=== PATIENT | male | born 1950 | race Caucasian/White ===

== ENCOUNTER 2018-12-31 12:52 | Emergency (ER) | payer OTHER ==
--- OUTSIDE RECORDS SUMMARY | 2018-12-31 12:56 | XMS REPORT ---
:1950 Author Organization eClinicalWorks Care Team Providers Name Role Phone Khushi Castellanoh Provider Role Unavailable Allergies, Adverse Reactions, Alerts Substance Reaction Event Type N.K.D.A. Info Not Available Non Drug Allergy Problems Problem Type Condition Code Onset Dates Condition Status Assessment Stented coronary artery Z95.5 Active Assessment Mixed hyperlipidemia E78.2 Active Assessment HTN (hypertension), benign I10 Active Assessment Environmental and seasonal allergies J30.89 Active Problem Stented coronary artery Z95.5 Active Problem Mixed hyperlipidemia E78.2 Active Problem HTN (hypertension), benign I10 Active Assessment Coronary artery disease involving I25.10 Active [place] coronary artery of [place] heart without angina pectoris Problem Environmental and seasonal allergies J30.89 Active Problem Coronary artery disease involving I25.10 Active [place] coronary artery of [place] heart without angina pectoris Medications Medication Code Code Instructions Start End Status Dosage System Date Date Aspirin [facility] 16470328326 81 MG Orally Active 1 tablet Once a day Simvastatin [facility] 09390956283 40 MG Orally Active 1 tablet Once a day in the evening Clopidogrel [facility] 09276729321 75 MG Orally Active 1 tablet Bisulfate Once a day Simvastatin [facility] 20961856353 40 Active TAKE 1 TABLET BY MOUTH AT BEDTIME Multivitamin [facility] 67406750587 - Orally Active not Adult defined MSM [facility] 76837923491 500 MG Orally Active not defined Results No Known Results Summary Purpose eClinicalWorks Submission
--- OUTSIDE RECORDS SUMMARY | 2018-12-31 12:56 | XMS REPORT ---
:1950 Author Organization eClinicalWorks Care Team Providers Name Role Phone Nelson, Na Provider Role Unavailable Allergies No Known Allergies Problems Problem Type Condition Code Onset Dates Condition Status Assessment Allergic rhinitis J30.9 Active Problem HTN (hypertension), benign I10 Active Problem Stented coronary artery Z95.5 Active Problem Allergic rhinitis, unspecified J30.9 Active seasonality, unspecified trigger Problem Coronary artery disease involving I25.10 Active [place] coronary artery of [place] heart without angina pectoris Problem Mixed hyperlipidemia E78.2 Active Problem Environmental and seasonal allergies J30.89 Active Medications Medication Code Code Instructions Start End Status Dosage System Date Date Multivitamin [facility] 53361045462 - Orally Active not Adult defined Clopidogrel [facility] 26761416353 75 MG Orally Active 1 tablet Bisulfate Once a day Simvastatin [facility] 48429284658 40 Active TAKE 1 TABLET BY MOUTH EVERY NIGHT AT BEDTIME Simvastatin [facility] 56445781906 40 MG Orally Active 1 tablet Once a day in the evening Aspirin 81 [facility] 88792984290 81 MG Orally Active 1 tablet Once a day MSM [facility] 88444645950 500 MG Orally Active not defined Results No Known Results Summary Purpose eClinicalWorks Submission
--- OUTSIDE RECORDS SUMMARY | 2018-12-31 12:56 | XMS REPORT ---
:1950 Author Organization eClinicalWorks Care Team Providers Name Role Phone Gray Erik Provider Role Unavailable Allergies, Adverse Reactions, Alerts [...] Assessment Coronary artery disease involving I25.10 Active [place] coronary artery of [place] heart without angina pectoris Problem Environmental and seasonal allergies J30.89 Active Problem Coronary artery disease involving I25.10 Active [place] coronary artery of [place] heart without angina pectoris Medications Medication Code Code Instructions Start End Status Dosage System Date Date Simvastatin [facility] 22847343679 40 MG Orally Active 1 tablet Once a day in the evening Simvastatin [facility] 11420478294 40 Active TAKE 1 TABLET BY MOUTH AT BEDTIME Clopidogrel [facility] 91956383659 75 MG Orally Active 1 tablet Bisulfate Once a day Aspirin 81 [facility] 80262855718 81 MG Orally Active 1 tablet Once a day Multivitamin [facility] 72398577823 - Orally Active not Adult defined MSM [facility] 57923533928 500 MG Orally Active not defined Results No Known Results Summary Purpose eClinicalWorks Submission
--- OUTSIDE RECORDS SUMMARY | 2018-12-31 12:56 | XMS REPORT ---
:1950 Author Organization eClinicalWorks Care Team Providers Name Role Phone Khushi Castellanoh Provider Role Unavailable Allergies No Known Allergies Problems Problem Type Condition Code Onset Dates Condition Status Problem HTN (hypertension), benign I10 Active Problem Stented coronary artery Z95.5 Active Problem Allergic rhinitis, unspecified J30.9 Active seasonality, unspecified trigger Problem Coronary artery disease involving I25.10 Active [place] coronary artery of [place] heart without angina pectoris Problem Mixed hyperlipidemia E78.2 Active Problem Environmental and seasonal allergies J30.89 Active Medications No Known Medications Results No Known Results Summary Purpose eClinicalWorks Submission
--- OUTSIDE RECORDS SUMMARY | 2018-12-31 12:56 | XMS REPORT ---
:1950 Author Organization eClinicalWorks Care Team Providers Name Role Phone CastellanoKhushih Provider Role Unavailable Allergies, Adverse Reactions, Alerts Substance Reaction Event Type N.K.D.A. Info Not Available Non Drug Allergy Problems Problem Type Condition Code Onset Dates Condition Status Assessment Pain of left leg M79.605 Active Assessment Pain in right leg M79.604 Active Problem Stented coronary artery Z95.5 Active Problem Mixed hyperlipidemia E78.2 Active Problem HTN (hypertension), benign I10 Active Assessment Contusion of lower leg, S80.10XA Active unspecified laterality, initial encounter Problem Environmental and seasonal J30.89 Active allergies Problem Coronary artery disease involving I25.10 Active [place] coronary artery of [place] heart without angina pectoris Medications Medication Code Code Instructions Start End Status Dosage System Date Date MSM [facility] 64765208444 500 MG Orally Active not defined Aspirin 81 [facility] 67027086595 81 MG Orally Active 1 tablet Once a day Simvastatin [facility] 41556561106 40 Active TAKE 1 TABLET BY MOUTH EVERY NIGHT AT BEDTIME Multivitamin [facility] 74339418057 - Orally Active not Adult defined Simvastatin [facility] 29224695707 40 MG Orally Active 1 tablet Once a day in the evening Clopidogrel [facility] 08532370222 75 MG Orally Active 1 tablet Bisulfate Once a day Results No Known Results Summary Purpose eClinicalWorks Submission
--- OUTSIDE RECORDS SUMMARY | 2018-12-31 12:56 | XMS REPORT ---
:1950 Author Organization eClinicalWorks Care Team Providers Name Role Phone Gray Erik Provider Role Unavailable Allergies No Known Allergies Problems Problem Type Condition Code Onset Dates Condition Status Assessment Allergic rhinitis J30.9 Active Problem HTN (hypertension), benign I10 Active Problem Stented coronary artery Z95.5 Active Problem Allergic rhinitis, unspecified J30.9 Active seasonality, unspecified trigger Problem Coronary artery disease involving I25.10 Active [place] coronary artery of [place] heart without angina pectoris Problem Mixed hyperlipidemia E78.2 Active Problem Environmental and seasonal allergies J30.89 Active Medications Medication Code Code Instructions Start End Status Dosage System Date Date Multivitamin [facility] 21269328083 - Orally Active not Adult defined Simvastatin [facility] 96571277147 40 MG Orally Active 1 tablet Once a day in the evening Simvastatin [facility] 77637019696 40 Active TAKE 1 TABLET BY MOUTH EVERY NIGHT AT BEDTIME Aspirin 81 [facility] 98373258224 81 MG Orally Active 1 tablet Once a day MSM [facility] 52950744966 500 MG Orally Active not defined Clopidogrel [facility] 87699963905 75 MG Orally Active 1 tablet Bisulfate Once a day Results No Known Results Summary Purpose eClinicalWorks Submission
--- OUTSIDE RECORDS SUMMARY | 2018-12-31 12:56 | XMS REPORT ---
:1950 Author Organization eClinicalWorks Care Team Providers Name Role Phone Erik Castellaon Provider Role Unavailable Allergies, Adverse Reactions, Alerts Substance Reaction Event Type N.K.D.A. Info Not Available Non Drug Allergy Problems Problem Type Condition Code Onset Dates Condition Status Assessment Mixed hyperlipidemia E78.2 Active Assessment Encounter for preventative adult Z00.01 Active health care exam with abnormal findings Assessment Coronary artery disease involving I25.10 Active [place] coronary artery of [place] heart without angina pectoris Problem HTN (hypertension), benign I10 Active Problem Stented coronary artery Z95.5 Active Problem Allergic rhinitis, unspecified J30.9 Active seasonality, unspecified trigger Problem Coronary artery disease involving I25.10 Active [place] coronary artery of [place] heart without angina pectoris Problem Mixed hyperlipidemia E78.2 Active Problem Environmental and seasonal allergies J30.89 Active Assessment Screening for depression Z13.31 Active Assessment Adult BMI 25.0-25.9 kg/sq m Z68.25 Active Assessment Allergic rhinitis, unspecified J30.9 Active seasonality, unspecified trigger Assessment Encounter for screening for other Z13.89 Active disorder Assessment Stented coronary artery Z95.5 Active Assessment Acute non-recurrent maxillary J01.00 Active sinusitis Assessment HTN (hypertension), benign I10 Active Medications Medication Code Code Instructions Start End Date Status Dosage System Date MSM [facility] 77002493768 500 MG Orally Active not defined Simvastatin [facility] 33696656167 40 MG Orally Active 1 tablet Once a day in the evening Multivitamin [facility] 19640996870 - Orally Active not Adult defined Aspirin 81 [facility] 68585230187 81 MG Orally Active 1 tablet Once a day Augmentin [facility] 30364025353 875-125 MG August Active 1 tablet Orally every 12 2018 hrs Clopidogrel [facility] 73574594654 75 MG Orally Active 1 tablet Bisulfate Once a day Results Name Result Date Reference Range Unit Abnormality Flag FLU TEST ----A Neg [id number] ----B Neg [id number] STREP A RAPID ----Result neg [id number] Summary Purpose eClinicalWorks Submission
--- OUTSIDE RECORDS SUMMARY | 2018-12-31 12:56 | XMS REPORT ---
:1950 Author Organization eClinicalWorks Care Team Providers Name Role Phone Khushi Castellanoh Provider Role Unavailable Allergies No Known Allergies Problems Problem Type Condition Code Onset Dates Condition Status Problem HTN (hypertension), benign I10 Active Problem Stented coronary artery Z95.5 Active Problem Allergic rhinitis, unspecified J30.9 Active seasonality, unspecified trigger Problem Coronary artery disease involving I25.10 Active [place] coronary artery of [place] heart without angina pectoris Problem Mixed hyperlipidemia E78.2 Active Problem Environmental and seasonal allergies J30.89 Active Medications No Known Medications Results No Known Results Summary Purpose eClinicalWorks Submission
--- OUTSIDE RECORDS SUMMARY | 2018-12-31 12:56 | XMS REPORT ---
:1950 Author Organization eClinicalWorks Care Team Providers Name Role Phone Gray Erik Provider Role Unavailable Allergies, Adverse Reactions, Alerts Substance Reaction Event Type N.K.D.A. Info Not Available Non Drug Allergy Problems Problem Type Condition Code Onset Dates Condition Status Assessment Allergic rhinitis, unspecified J30.9 Active seasonality, unspecified trigger Problem HTN (hypertension), benign I10 Active Problem Stented coronary artery Z95.5 Active Problem Allergic rhinitis, unspecified J30.9 Active seasonality, unspecified trigger Problem Coronary artery disease involving I25.10 Active [place] coronary artery of [place] heart without angina pectoris Problem Mixed hyperlipidemia E78.2 Active Problem Environmental and seasonal allergies J30.89 Active Medications Medication Code Code Instructions Start End Status Dosage System Date Date Simvastatin [facility] 86917304636 40 MG Orally Active 1 tablet Once a day in the evening MSM [facility] 22695820207 500 MG Orally Active not defined Aspirin [address] [facility] 82634146076 81 MG Orally Active 1 tablet Once a day Multivitamin [facility] 71158668404 - Orally Active not Adult defined Simvastatin [facility] 10342677655 40 Active TAKE 1 TABLET BY MOUTH EVERY NIGHT AT BEDTIME Clopidogrel [facility] 67426757020 75 MG Orally Active 1 tablet Bisulfate Once a day Results No Known Results Summary Purpose eClinicalWorks Submission
--- OUTSIDE RECORDS SUMMARY | 2018-12-31 12:57 | XMS REPORT ---
:1950 Author Organization eClinicalWorks Care Team Providers Name Role Phone Gray Erik Provider Role Unavailable Allergies, Adverse Reactions, Alerts Substance Reaction Event Type N.K.D.A. Info Not Available Non Drug Allergy Problems Problem Type Condition Code Onset Dates Condition Status Assessment History of whiplash injury to neck Z87.828 Active Assessment Allergic rhinitis J30.9 Active Assessment Muscle spasm M62.838 Active Problem HTN (hypertension), benign I10 Active Problem Stented coronary artery Z95.5 Active Problem Allergic rhinitis, unspecified J30.9 Active seasonality, unspecified trigger Problem Coronary artery disease involving I25.10 Active [place] coronary artery of [place] heart without angina pectoris Problem Mixed hyperlipidemia E78.2 Active Problem Environmental and seasonal J30.89 Active allergies Medications Medication Code Code Instructions Start End Status Dosage System Date Date Simvastatin [facility] 34779859159 40 MG Orally Active 1 tablet Once a day in the evening Cyclobenzaprine [facility] 94688949923 5 MG Orally December 29December Active 1-2 HCl Once at bedtime 2018 14, tablet as 2019 needed at bedtime MSM [facility] 90101071785 500 MG Orally Active not defined Simvastatin [facility] 93474268536 40 Active TAKE 1 TABLET BY MOUTH EVERY NIGHT AT BEDTIME Aspirin 81 [facility] 29799651418 81 MG Orally Active 1 tablet Once a day Clopidogrel [facility] 35749820253 75 MG Orally Active 1 tablet Bisulfate Once a day Multivitamin Adult [facility] 91349798220 - Orally Active not defined Results No Known Results Summary Purpose eClinicalWorks Submission
--- OUTSIDE RECORDS SUMMARY | 2018-12-31 12:57 | XMS REPORT ---
:1950 Author Organization eClinicalWorks Care Team Providers Name Role Phone Erik Castellano Provider Role Unavailable Allergies No Known Allergies Problems Problem Type Condition Code Onset Dates Condition Status Assessment Allergic rhinitis J30.9 Active Problem HTN (hypertension), benign I10 Active Problem Stented coronary artery Z95.5 Active Problem Allergic rhinitis, unspecified J30.9 Active seasonality, unspecified trigger Problem Coronary artery disease involving I25.10 Active [place] coronary artery of [place] heart without angina pectoris Problem Mixed hyperlipidemia E78.2 Active Problem Environmental and seasonal allergies J30.89 Active Medications Medication Code Code Instructions Start End Status Dosage System Date Date Simvastatin [facility] 73035547229 40 MG Orally Active 1 tablet Once a day in the evening Aspirin 81 [facility] 32832084935 81 MG Orally Active 1 tablet Once a day Clopidogrel [place] 51611119556 75 MG Orally Active 1 tablet Bisulfate Once a day Multivitamin [facility] 38127450297 - Orally Active not Adult defined Simvastatin [facility] 61177993912 40 Active TAKE 1 TABLET BY MOUTH EVERY NIGHT AT BEDTIME MSM [facility] 25793393283 500 MG Orally Active not defined Results No Known Results Summary Purpose eClinicalWorks Submission
--- OUTSIDE RECORDS SUMMARY | 2018-12-31 12:57 | XMS REPORT ---
:1950 Author Organization eClinicalWorks Care Team Providers Name Role Phone Gray Erik Provider Role Unavailable Allergies, Adverse Reactions, Alerts Substance Reaction Event Type N.K.D.A. Info Not Available Non Drug Allergy Problems Problem Type Condition Code Onset Dates Condition Status Assessment Mixed hyperlipidemia E78.2 Active Assessment Coronary artery disease involving I25.10 Active [place] coronary artery of [place] heart without angina pectoris Assessment Allergic rhinitis J30.9 Active Assessment Environmental and seasonal allergies J30.89 Active Assessment Stented coronary artery Z95.5 Active Assessment HTN (hypertension), benign I10 Active Problem HTN (hypertension), benign I10 Active Problem Stented coronary artery Z95.5 Active Problem Allergic rhinitis, unspecified J30.9 Active seasonality, unspecified trigger Problem Coronary artery disease involving I25.10 Active [place] coronary artery of [place] heart without angina pectoris Problem Mixed hyperlipidemia E78.2 Active Problem Environmental and seasonal allergies J30.89 Active Medications Medication Code Code Instructions Start End Status Dosage System Date Date Multivitamin [facility] 22886130549 - Orally Active not Adult defined Simvastatin [facility] 11209744813 40 MG Orally Active 1 tablet Once a day in the evening MSM [facility] 70694227028 500 MG Orally Active not defined Clopidogrel [facility] 80257827396 75 MG Orally Active 1 tablet Bisulfate Once a day Aspirin 81 [facility] 11590921686 81 MG Orally Active 1 tablet Once a day Results No Known Results Summary Purpose eClinicalWorks Submission
--- OUTSIDE RECORDS SUMMARY | 2018-12-31 12:57 | XMS REPORT ---
:1950 Author Organization eClinicalWorks Care Team Providers Name Role Phone Khushi Castellanoh Provider Role Unavailable Allergies No Known Allergies Problems Problem Type Condition Code Onset Dates Condition Status Problem HTN (hypertension), benign I10 Active Problem Stented coronary artery Z95.5 Active Problem Allergic rhinitis, unspecified J30.9 Active seasonality, unspecified trigger Problem Coronary artery disease involving I25.10 Active [place] coronary artery of [place] heart without angina pectoris Problem Mixed hyperlipidemia E78.2 Active Problem Environmental and seasonal allergies J30.89 Active Medications No Known Medications Results No Known Results Summary Purpose eClinicalWorks Submission
[2018-12-31] MEDS ORDERED: CYCLOBENZAPRINE 10 MG TAB ONE (14:43)
[2018-12-31] MEDS ORDERED: HYDROCODONE/APAP 7.5/325 MG TAB ONE (14:44)
--- NOTE | 2018-12-31 15:50 | RAD REPORT ---
EXAM DESCRIPTION: CT - Soft Tissue Neck W/Contr CLINICAL HISTORY: PAIN Pain and swelling COMPARISON: [id number] dated 05/29/[id number] dated 05/29/2007; Extrem Venous W Compress Shant dated 09/01/[address] scans are performed using dose optimization technique as appropriate and may includ e automated exposure control or mA/KV adjustment according to patient size. FINDINGS: Nasopharyngeal tissues are normal in appearance. Fossa Rosenmller are normal. Parapharyngeal fat triangles are symmetric. Tongue base structures are normal. Epiglottis and aryepiglottic folds are normal. Piriform sinuses are well aerated. The vocal cords are normal in appearance. Salivary glands are normal in appearance. Lower cervical degenerative changes are present. IMPRESSION: No acute neck abnormality is detected.
--- NOTE | 2018-12-31 16:01 | ER ---
Nurse's Notes [facility] Name: Ha Kaiser Age: 68 yrs Sex: Male : 1950 Arrival Date: 12/31/2018 Time: 12:53 Bed 10 Private MD: Erik Castellano Diagnosis: Neck pain;Other muscle spasm;Torticollis Presentation: 12/31 13:15 Presenting complaint: Patient states: Neck pain after swinging golf club on Friday, hx ph of neck pain. Transition of care: patient was not received from another setting of care. Onset of symptoms was December 31, 2018. Risk Assessment: Do you want to hurt yourself or someone else? Patient reports no desire to harm self or others. Initial Sepsis Screen: Does the patient meet any 2 criteria? No. Patient's initial sepsis screen is negative. Does the patient have a suspected source of infection? No. Patient's initial sepsis screen is negative. Care prior to arrival: None. 13:15 Method Of Arrival: Ambulatory 13:15 Acuity: MADHAV 4 ph Triage Assessment: 16:33 General: Appears in no apparent distress. Behavior is calm, cooperative. iw Historical: - Allergies: 13:18 No Known Allergies; ph - PMHx: 13:18 Hyperlipidemia; ph - PSHx: 13:18 Hernia repair; ph - Immunization history:: Adult Immunizations unknown. - Social history:: Smoking status: Patient/guardian denies using tobacco. - Ebola Screening: : No symptoms or risks identified at this time. Screenin:33 Abuse screen: Denies threats or abuse. Denies injuries from another. Nutritional iw screening: No deficits noted. Tuberculosis screening: No symptoms or risk factors identified. Fall Risk None identified. Assessment: 14:20 General: Appears uncomfortable, Behavior is calm, cooperative. Pain: Complains of pain iw in neck. Neuro: Level of Consciousness is awake, alert, obeys commands, Oriented to person, place, time, situation, Moves all extremities. Full function. Cardiovascular: Patient's skin is warm and dry. Respiratory: Respiratory effort is even, unlabored, Respiratory pattern is regular, symmetrical. GI: No signs and/or symptoms were reported involving the gastrointestinal system. : No signs and/or symptoms were reported regarding the genitourinary system. Derm: Skin is intact, is healthy with good turgor. Musculoskeletal: Range of motion: intact in all extremities. Musculoskeletal: Reports pain in neck. 16:33 Reassessment: Patient appears in no apparent distress at this time. Patient and/or iw family updated on plan of care and expected duration. Pain level reassessed. Patient is alert, oriented x 3, equal unlabored respirations, skin warm/dry/pink. Patient states feeling better. Patient states symptoms have improved. Vital Signs: 13:16 BP 146 / 82; Pulse 81; Resp 18; Temp 97.8; Pulse Ox 96% on R/A; Weight 81.19 kg; Height ph 5 ft. 10 in. (177.80 cm); Pain 8/10; 13:16 Body Mass Index 25.68 (81.19 kg, 177.80 cm) ph ED Course: 12:53 Patient arrived in ED. as 12:53 Erik Castellano DO is Private Physician. as 13:10 Ferny Mckeon MD is Attending Physician. kdr 13:16 Triage completed. ph 13:18 Arm band placed on Patient placed in an exam room. ph 13:45 Jo Ann Wood, RN is Primary Nurse. iw 14:23 Initial lab(s) drawn, by me, sent to lab. jp3 14:23 Creatinine for Radiology Sent. jp3 14:30 Patient has correct armband on for positive identification. iw 15:36 CT completed. Patient tolerated procedure well. Patient moved back from CT. nj 15:37 Soft Tissue Neck W/Contr CT In Process Unspecified. EDMS 15:59 Erik Castellano DO is Referral Physician. kdr 16:32 No provider procedures requiring assistance completed. Patient did not have IV access iw during this emergency room visit. Administered Medications: 14:35 Drug: [place] (7.5 mg-325 mg) 1 tabs Route: PO; iw 15:30 Follow up: Response: No adverse reaction iw 14:35 Drug: Flexeril 10 mg Route: PO; iw 15:30 Follow up: Response: No adverse reaction iw 16:34 Not Given (Patient Refused): TORadol - Ketorolac 15 mg IVP once iw 17:32 Not Given (Duplicate Order): Ketorolac 15 mg IVP once iw 17:32 Drug: TORadol - Ketorolac 15 mg Route: IM; Site: right deltoid; iw 17:33 Follow up: Response: No adverse reaction iw Outcome: 16:01 Discharge ordered by . kdr 16:33 Discharged to home ambulatory, with family. iw 16:33 Condition: good 16:33 Discharge instructions given to patient, Instructed on discharge instructions, follow up and referral plans. medication usage, Demonstrated understanding of instructions, follow-up care, medications, Prescriptions given X 4. 17:32 Patient left the ED. iw Signatures: Dispatcher [employer] EDMS Ferny Mckeon MD MD kdr Martinez, Amelia as Williams, Irene, RN RN Kaity Cannon RN RN [facility], Jose Johnson 3
--- NOTE | 2018-12-31 16:01 | EDPHYS ---
Physician Documentation [facility] Name: Ha Kaiser Age: 68 yrs Sex: Male : 1950 Arrival Date: 12/31/2018 Time: 12:53 Bed 10 Private MD: Erik Castellano ED Physician Ferny Mckeon HPI: 12/31 14:08 This 68 yrs old Male presents to ER via Ambulatory with complaints of Neck kdr Pain, >24Hrs Old. 14:08 The patient or guardian complains of decreased range of motion, pain, that is acute, kdr tenderness. The symptoms are located diffusely. Onset: The symptoms/episode began/occurred gradually, Began Friday afternoon after swinging golf clubs on Friday. By Friday night, the patient had significant pain. Context: The problem was sustained at home, The neck injury/problem resulted from from unknown cause, The patient was playing golf on Friday. Associated signs and symptoms: The patient has no apparent associated signs or symptoms. Down his chest. Modifying factors: The symptoms are alleviated by nothing. Severity of symptoms: At their worst the symptoms were moderate, severe, just prior to arrival, in the emergency department the symptoms are unchanged. The patient has not experienced similar symptoms in the past. The patient has not recently seen a physician. Historical: - Allergies: 13:18 No Known Allergies; ph - PMHx: 13:18 Hyperlipidemia; ph - PSHx: 13:18 Hernia repair; ph - Immunization history:: Adult Immunizations unknown. - Social history:: Smoking status: Patient/guardian denies using tobacco. - Ebola Screening: : No symptoms or risks identified at this time. ROS: 14:14 Constitutional: Negative for fever, chills, and weight loss, Eyes: Negative for injury, kdr pain, redness, and discharge. 14:14 Neck: Positive for injury or acute deformity, pain with movement, stiffness, Negative for rash, swelling, swollen nodes, bony tenderness, acute changes. Exam: 14:14 Constitutional: This is a well developed, well nourished patient who is awake, alert, kdr and in no acute distress. Head/Face: Normocephalic, atraumatic. Eyes: Pupils equal round and reactive to light, extra-ocular motions intact. Lids and lashes normal. Conjunctiva and sclera are non-icteric and not injected. Cornea within normal limits. Periorbital areas with no swelling, redness, or edema. 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 Vital Signs: 13:16 BP 146 / 82; Pulse 81; Resp 18; Temp 97.8; Pulse Ox 96% on R/A; Weight 81.19 kg; Height ph 5 ft. 10 in. (177.80 cm); Pain 8/10; 13:16 Body Mass Index 25.68 (81.19 kg, 177.80 cm) ph MDM: 16:01 Patient medically screened. kdr 16:04 Data reviewed: vital signs, nurses notes, lab test result(s), radiologic studies. kdr Counseling: I had a detailed discussion with the patient and/or guardian regarding: the historical points, exam findings, and any diagnostic results supporting the discharge/admit diagnosis, lab results, radiology results, the need for outpatient follow up. 12/31 14:07 Order name: Creatinine for Radiology; Complete Time: 15:40 kdr 12/31 14:07 Order name: Soft Tissue Neck W/Contr CT; Complete Time: 15:58 kdr Administered Medications: 14:35 Drug: [place] (7.5 mg-325 mg) 1 tabs Route: PO; iw 15:30 Follow up: Response: No adverse reaction iw 14:35 Drug: Flexeril 10 mg Route: PO; iw 15:30 Follow up: Response: No adverse reaction iw 16:34 Not Given (Patient Refused): TORadol - Ketorolac 15 mg IVP once iw 17:32 Not Given (Duplicate Order): Ketorolac 15 mg IVP once iw 17:32 Drug: TORadol - Ketorolac 15 mg Route: IM; Site: right deltoid; iw 17:33 Follow up: Response: No adverse reaction iw Disposition: 12/31/18 16:01 Discharged to Home. Impression: Neck pain, Other muscle spasm, Torticollis. - Condition is Stable. - Discharge Instructions: Muscle Cramps and Spasms, Acute Torticollis, Adult. - Prescriptions for Ibuprofen 600 mg Oral Tablet - take 1 tablet by ORAL route every 6 hours As needed take with food; 30 tablet. Tramadol 50 mg Oral Tablet - take 1 tablet by ORAL route every 8 hours as needed; 12 tablet. Medrol (Quinn) 4 mg Oral Tablets, Dose Pack - take 1 tablet by ORAL route as directed - follow package instructions; 1 packet. Cyclobenzaprine 5 mg Oral Tablet - take 1 tablet by ORAL route 3 times per day As needed; 15 tablet. - Medication Reconciliation Form, Thank You Letter, Prescription Opioid Use form. - Follow up: Erik Castellano DO; When: 2 - 3 days; Reason: If symptoms return, Further diagnostic work-up, Recheck today's complaints, Continuance of care, Re-evaluation by your physician. - Problem is new. - Symptoms have improved. Signatures: Dispatcher [employer] EDFerny Gomez MD MD kdr Jo Ann Wood RN RN iw Kaity Cannon RN RN ph Corrections: (The following items were deleted from the chart) 17:32 16:01 12/31/2018 16:01 Discharged to Home. Impression: Neck pain; Other muscle spasm; iw Torticollis. Condition is Stable. Forms are Medication Reconciliation Form, Thank You Letter, Antibiotic Education, Prescription Opioid Use. Follow up: Erik Castellano; When: 2 - 3 days; Reason: If symptoms return, Further diagnostic work-up, Recheck today's complaints, Continuance of care, Re-evaluation by your physician. Problem is new. Symptoms have improved. kdr
[2018-12-31 17:37] VITALS: BP 146/82; TEMP 97.8; O2SAT 96
[2018-12-31] MEDS ORDERED: KETOROLAC 30 MG/ML INJ ONE (17:39)
== END 2018-12-31 17:32 | disposition home or self-care (01) ==
LOC: ER 12:52
DX: M43.6 Torticollis (principal); M62.838 Other muscle spasm
CPT/HCPCS: 36415; 70491; 96372; 99284; Q9967